=== PATIENT | male | born 1975 | race Caucasian/White ===

== ENCOUNTER 2017-02-24 02:35 | Emergency (ER) | payer OTHER ==
[~2017-02-24] VITALS: Ht 188 cm; Wt 86.2 kg
[2017-02-24] MEDS ORDERED: FLONASE 0.05%50 MCG NASAL (02:43)
[2017-02-24] MEDS ORDERED: PREDNISONE 20 M20 M1 PO (02:43)
[2017-02-24 02:51] LABS: HEMATOCRIT 41.4 % (42.0-52.0); HEMOGLOBIN 13.9 gm/dL (14.0-18.0); MCH 30.3 pg (26.0-34.0); MCHC 33.5 g/dL (28.0-37.0); MCV 90.5 fL (80.0-100.0); RBC 4.58 mil/uL (4.50-6.00); RDW 12.5 % (10.5-14.5); WBC 13.6 thou/uL (4.0-11.0)
[2017-02-24 03:00] LABS: CALCIUM 9.2 mg/dL (8.5-10.1); CREATININE 1.4 mg/dL (0.7-1.3); POTASSIUM 3.7 mmol/L (3.5-5.1)
[2017-02-24 03:04] LABS: APTT 25.2 Seconds (24.5-32.8); INR 1.1
[2017-02-24] MEDS ORDERED: XARELTO15 MG PO (04:14)
== END 2017-02-24 04:24 | disposition home or self-care (01) ==
LOC: ER 02:35
PROVIDERS: Emergency Medicine
DX: I82.4Z1 Acute embolism and thrombosis of unspecified deep veins of right distal lower extremity (principal)

== ENCOUNTER → 2017-05-19 | Outpatient (CLI) | payer OTHER ==
[~2017-05-19] MED LIST: FLONASE 0.05%50 MCG NASAL; PREDNISONE 20 M20 M1 PO; XARELTO15 MG PO
== END ==
LOC: ULTRA 06:23
DX: I82.411 Acute embolism and thrombosis of right femoral vein (principal); I82.441 Acute embolism and thrombosis of right tibial vein

== ENCOUNTER → 2018-06-22 | Outpatient (CLI) | payer OTHER | LOC: ULTRA 09:27 | DX: I82.502 Chronic embolism and thrombosis of unspecified deep veins of left lower extremity (principal) ==

== ENCOUNTER → 2020-01-30 | Outpatient (CLI) | payer OTHER | LOC: LAB 09:33 | PROVIDERS: ATTEND Family Medicine | DX: J02.9 Acute pharyngitis, unspecified (principal); Z20.828 Contact with and (suspected) exposure to other viral communicable diseases ==